=== PATIENT | male | born 1965 | race Hispanic/Latino ===

== ENCOUNTER 2021-01-07 07:03 | Emergency (ER) | payer SELFPAY ==
[2021-01-07] MEDS ORDERED: Boostrix 0.5 ML (Tdap) VIAL ONE (07:54)
[2021-01-07] MEDS ORDERED: Ondansetron PF 4 MG/2 ML Vial ONE (07:54)
[2021-01-07] MEDS ORDERED: Ketorolac Tromethamine 30 MG/ML VIAL ONE (07:54)
[2021-01-07 08:01] LABS: #Lymphocytes 0.7 thou/uL (1.20-3.40); #Monocytes 0.4 thou/uL (0.11-0.59); #Neutrophils 14.2 thou/uL (1.40-6.50); %Eosinophils 0.3 % (0.0-10.0); %Lymphocytes 4.6 % (21.0-51.0); %Monocytes 2.8 % (0.0-10.0); %Neutrophils 92.4 % (42.0-75.0); Mean Corpuscular HGB CONC 34.4 g/dL (32.0-36.0); Mean Corpuscular Hemoglobin 32.2 pg (27.0-31.0); Mean Corpuscular Volume 93.5 fL (78.0-98.0); Mean Platelet Volume 6.3 fL (7.4-10.4); Platelet Count 278 thou/uL (130-400); RBC Distribution Width 11.7 % (11.5-14.5); Red Blood Cell (RBC) Count 4.65 mill/uL (4.70-6.10); White Blood Cell (WBC) Count 15.4 thou/uL (4.8-10.8)
--- NOTE | 2021-01-07 08:11 | CT ---
CT Abdomen Pelvis W Con HISTORY: Left-sided abdominal pain recently diagnosed with HIV. COMPARISON: 09/19/2014 study. FINDINGS: The lung bases show gravity dependent atelectasis. There are mild fatty changes of the liver. Spleen is within normal limits in size. The pancreas and g allbladder regions are unremarkable. Right and left adrenal glands are normal. There is a punctate upper pole renal calculus and one sligh tly larger 2 to 3 mm upper pole left renal calculus present. There is left-sided hydronephrosis and hydroureter related to a 3 mm proximal left ureteral calculus that is located at the L3-4 level. Ther e is some left-sided perinephric fat stranding associated with this. There is no significant periaortic or mesenteric adenopathy. CT of pelvis performed with contrast: The appendix is normal. No adenopathy or mass. Some mild divert icular changes of the sigmoid colon are seen. A fat-containing left inguinal hernia is present. There are arthritic changes of the spine. IMPRESSION: 2 small upper pole left renal calculi. There is also left-sided hydronephrosis and hydrou reter related to a 3 mm calculus located just to the left of the L3-4 disc level.
[2021-01-07 08:25] LABS: ALT (SGPT) 19 U/L (8-55); AST (SGOT) 18 U/L (5-34); Albumin 4.3 g/dL (3.5-5.0); Alkaline Phosphatase 96 U/L (40-110); Anion Gap 15 mmol/L (10-20); BUN (Urea Nitrogen) 15 mg/dL (8.4-25.7); Bilirubin, Total 0.4 mg/dL (0.2-1.2); Calc. Creatinine Clearance 0 mL/min (70-130); Calcium 8.8 mg/dL (7.8-10.44); Carbon Dioxide 22 mmol/L (22-29); Chloride 105 mmol/L (98-107); Globulin 3.6 g/dL (2.4-3.5); Glucose 134 mg/dL (70-105); Lipase 16 U/L (8-78); Potassium 3.6 mmol/L (3.5-5.1); Protein, Total 7.9 g/dL (6.0-8.3); Sodium 138 mmol/L (136-145)
[2021-01-07] MEDS ORDERED: Silver Sulfadiazine 50 GM TUBE ONE (09:04)
[2021-01-07 09:06] LABS: Bacteria/HPF None Seen HPF (None Seen); Bilirubin Negative (Negative); Blood, Urine Trace (Negative); Clarity Clear (Clear); Glucose, Urine (Dipstick) Normal (Negative); Ketone, Urine Negative (Negative); Leukocyte Negative Leu/uL (Negative); Nitrite Negative (Negative); Protein, Urine (Dipstick) Negative (Neg-Trace); RBC/HPF 0-3 HPF (0-3); Specific Gravity, Urine 1.026 (1.002-1.036); Squamous Epithelial 0-3 HPF (0-3); Urobilinogen Normal mg/dL (Less than 2); WBC/HPF 0-3 HPF (0-3)
== END 2021-01-07 11:05 | disposition home or self-care (01) ==
LOC: ERS 07:03
DX: N13.2 Hydronephrosis with renal and ureteral calculous obstruction (principal); B20 Human immunodeficiency virus [HIV] disease; D72.810 Lymphocytopenia; T24.231A Burn of second degree of right lower leg, initial encounter; T25.221A Burn of second degree of right foot, initial encounter; Z79.899 Other long term (current) drug therapy; X10.2XXA Contact with fats and cooking oils, initial encounter
CPT/HCPCS: 36415; 74177; 80053; 81003; 81015; 83690; 84484; 85025; 90471; 90715; 93005; J1885; J2405